=== PATIENT | male | born 1995 | race Caucasian/White ===

== ENCOUNTER 2018-10-28 11:37 | Emergency (ER) | payer OTHER ==
[~2018-10-28] VITALS: Ht 180.3 cm; Wt 95.3 kg
[2018-10-28 11:46] VITALS: BP 150/63; Ht 180.3 cm; Wt 95.3 kg
== END 2018-10-28 13:41 | disposition home or self-care (01) ==
LOC: ED 11:37
DX: S60.512A Abrasion of left hand, initial encounter (principal); S60.511A Abrasion of right hand, initial encounter; E78.00 Pure hypercholesterolemia, unspecified; W20.8XXA Other cause of strike by thrown, projected or falling object, initial encounter; Y93.89 Activity, other specified; Y92.89 Other specified places as the place of occurrence of the external cause; Y99.8 Other external cause status
CPT/HCPCS: 90715; J1885; Q0092

== ENCOUNTER 2018-11-16 08:35 | Emergency (ER) | payer OTHER ==
[~2018-11-16] VITALS: Ht 180.3 cm; Wt 94.3 kg
[2018-11-16 08:44] VITALS: Ht 180.3 cm; Wt 94.3 kg
[2018-11-16 10:21] VITALS: BP 124/75
== END 2018-11-16 10:21 | disposition home or self-care (01) ==
LOC: ED 08:35
DX: S39.012A Strain of muscle, fascia and tendon of lower back, initial encounter (principal); E78.00 Pure hypercholesterolemia, unspecified; X58.XXXA Exposure to other specified factors, initial encounter; Y93.89 Activity, other specified; Y92.89 Other specified places as the place of occurrence of the external cause; Y99.8 Other external cause status
CPT/HCPCS: J1885